=== PATIENT | male | born 1980 | race Caucasian/White ===

== ENCOUNTER 2017-04-07 18:54 | Inpatient (IN) ==
[2017-04-07] MEDS ORDERED: NS 2,000 ML IV ONE (19:56)
[2017-04-07] MEDS ORDERED: ZOFRAN IV ONE (19:56)
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
[2017-04-07 20:13] LABS: BASO% 0.3 % (0.0-0.8); EOS# 0.08 X1000 (0.0-0.7); EOS% 0.3 % (0.0-10.0); HEMATOCRIT 45.9 % (42.0-52.0); HEMOGLOBIN 16.1 g/dL (14.0-18.0); IMM GRAN# 0.12 X1000 (0.0-0.04); IMM GRAN% 0.5 % (0.0-0.5); LYMPH# 2.23 X1000 (1.2-3.4); LYMPH% 9.6 % (20.5-51.1); MANUAL DIFF NEEDED? NO; MCH 29.4 PG (27-31); MCHC 35.1 g/dL (33-37); MCV 83.8 FL (81-99); MONO# 1.82 X1000 (0.11-0.59); MONO% 7.9 % (1.7-9.3); MPV 10.7 FL (7.4-10.4); NEUT% 81.4 % (42.2-75.2); PLT 247 X1000 (130-400); RBC 5.48 XMIL (4.7-6.1)
[2017-04-07 20:25] LABS: INR 1.12; PROTIME 11.8 Seconds (9.2-11.7); PTT 26.3 Seconds (22.0-36.0)
[2017-04-07 20:29] LABS: CALCIUM 10.2 mg/dL (8.8-10.2); POTASSIUM 3.4 mmol/L (3.5-5.1); TOTAL BILIRUBIN 0.47 mg/dL (0.20-1.00); TOTAL PROTEIN 8.4 g/dL (6.3-8.3)
[2017-04-07 20:50] LABS: CK INDEX 0.7 (0.0-2.5); CK-MB 5.76 ng/mL (0.0-5.0)
--- NOTE | 2017-04-07 21:02 | Diag Imaging Result Doc PS360 ---
EXAM: HEAD W/O CONTRAST HISTORY: seizure COMPARISON: 11/12/2014. FINDINGS: No parenchymal hemorrhage. No epidural or subdural hematoma. No subarachnoid hemorrhage. No mass identified on this noncontrasted exam. No hydrocephalus. No sinus opacification. There is metal in the left scalp. IMPRESSION: No hemorrhage. Negative brain CT without contrast. Electronically signed by Bradly Bedolla 04/07/2017 8:59 PM
[2017-04-07 21:08] LABS: URINE CULTURE NEEDED? NO; URINE SOURCE CLEAN CATCH
[2017-04-07 21:15] LABS: URINE MICRO REVIEW NEEDED? YES
[2017-04-07 21:24] LABS: BILIRUBIN URINE NEGATIVE (NEGATIVE); BLOOD URINE SMALL (NEGATIVE); COLOR YELLOW; GLUCOSE URINE NEGATIVE (NEGATIVE); LEUKOCYTES URINE NEGATIVE (NEGATIVE); NITRITE URINE NEGATIVE (NEGATIVE); PH URINE 5.5; PROTEIN URINE 70 mg/dL (NEGATIVE); SP GRAVITY URINE 1.027; TURBIDITY URINE CLEAR (CLEAR); UR EPITHELIAL CELLS <10 /HPF (<10); URINE BACTERIA NEGATIVE /HPF; URINE RBC <10 /HPF (<10); URINE WBC <10 /HPF (<10); UROBILINOGEN URINE 2 mg/dL (NORMAL)
[2017-04-07 21:25] LABS: URINE CASTS NONE SEEN; URINE CRYSTALS NONE SEEN; URINE SMALL ROUND CELLS NONE SEEN
[2017-04-07 21:29] LABS: UR AMPHETAMINES QUAL NONE DETECTED (NONE DETECT); UR BARBITUATES QUAL NONE DETECTED (NONE DETECT); UR BENZODIAZEPIN QUAL NONE DETECTED (NONE DETECT); UR CANNABINOIDS QUAL NONE DETECTED (NONE DETECT); UR COCAINE QUAL NONE DETECTED (NONE DETECT); UR METHADONE QUAL NONE DETECTED (NONE DETECT); UR OPIATES QUAL NONE DETECTED (NONE DETECT); UR OXYCODONE QUAL NONE DETECTED (NONE DETECT); UR PCP QUAL NONE DETECTED (NONE DETECT)
[2017-04-07] MEDS ORDERED: ATIVAN IV PRN (23:49)
[2017-04-07] MEDS ORDERED: ZOFRAN IV PRN (23:49)
[2017-04-07] MEDS ORDERED: TYLENOL PO PRN (23:49)
[2017-04-08] MEDS: NS 1,000 ML IV SCH ×4 (00:40→17:52)
[2017-04-08] MEDS: ROCEPHIN 1 GM/NS 1 GM/50 ML IVPB IV SCH (00:40)
[2017-04-08] MEDS ORDERED: ROBITUSSIN-AC PO PRN (00:44)
[2017-04-08] MEDS ORDERED: NS 1,000 ML IV ONE (00:45)
[2017-04-08 05:21] LABS: MANUAL DIFF NEEDED? NO
[2017-04-08 05:26] LABS: BASO% 0.2 % (0.0-0.8); EOS# 0.11 X1000 (0.0-0.7); EOS% 0.8 % (0.0-10.0); HEMATOCRIT 37.9 % (42.0-52.0); HEMOGLOBIN 13.3 g/dL (14.0-18.0); IMM GRAN# 0.02 X1000 (0.0-0.04); IMM GRAN% 0.2 % (0.0-0.5); LYMPH# 2.82 X1000 (1.2-3.4); LYMPH% 21.5 % (20.5-51.1); MCH 29.8 PG (27-31); MCHC 35.1 g/dL (33-37); MONO# 1.09 X1000 (0.11-0.59); MONO% 8.3 % (1.7-9.3); MPV 10.5 FL (7.4-10.4); PLT 177 X1000 (130-400); RBC 4.46 XMIL (4.7-6.1)
[2017-04-08 05:53] LABS: AGAP 14; BUN 14 mg/dL (8-22); CHLORIDE 108 mmol/L (98-107); COSMO 279; POTASSIUM 3.6 mmol/L (3.5-5.1); SODIUM 140 mmol/L (136-145); TCO2 18 mmol/L (25-35)
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
[2017-04-08] MEDS: ZYRTEC-D 12HR PO SCH ×2 (09:28→21:34)
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
--- NOTE | 2017-04-08 12:34 | PROGRESS NOTE ---
DATE: 04/08/2017 SUBJECTIVE: Today Mr. Henry refers to be doing a little better but continues to have a very poor appetite and also some tingling sensation in the hands. OBJECTIVE: Vital signs: Blood pressure is 107/66, pulse of 75, respirations 15, temperature 97.4 degrees. General: Mr. Henry is a 36-year-old male. Full of tattoos. He was not in any distress. HEENT: Mucosa is pink and moist. Anicteric. Acyanotic. Neck: Supple. Chest: Air entry is bilaterally reduced. There is diffuse end expiratory wheezing and rhonchi. Cardiovascular: Regular rate and rhythm. Abdomen: Soft, nontender. Extremities: No pedal edema. 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 There is no focal neurological deficit. LABORATORY DATA: WBC 13.12, hemoglobin is 13.3, platelet count of 177,000. Chemistry: Sodium is 140, potassium is 3.4, chloride is 108, bicarb is 18, creatinine down to 1.4. TSH is normal. Abdomen x-ray which was done on presentation shows nonobstructive bowel pattern. Chest: Lung was clear. Normal heart size. No pneumothorax or pleural effusions. A CT scan of the head was done which shows no hemorrhage. Negative brain CT without contrast. I do not see any toxicology done. CURRENT MEDICATIONS: Patient is on ceftriaxone and guaifenesin. ASSESSMENT: 1. Rhabdomyolysis. 2. Heat exhaustion. 3. Bronchitis. 4. Active synthetic cannabis use. 5. Leukocytosis which I think is more reactive. PLAN: So in general, Mr. Henry is doing a whole lot better. He came in with rhabdomyolysis which I think is due to heat exertion. However, with a history of using synthetic marijuana, he could have also used other street recreational medications that could have potentially put him in rhabdomyolysis. The mother also refers that the patient might have had an episode of seizures which makes me think more of possibly some drug related activity. We will do a urine drug screen. Will continue with the IV hydration. We will recheck on his labs tomorrow morning and then go from there. I think by tomorrow we should be able to discharge the patient. The patient has also been advised to discontinue recreational drug use. cc: Bertin Baez MD
[2017-04-08 19:38] LABS: UR AMPHETAMINES QUAL PRESUMPTIVE POSITIVE (NONE DETECT); UR BARBITUATES QUAL NONE DETECTED (NONE DETECT); UR BENZODIAZEPIN QUAL NONE DETECTED (NONE DETECT); UR CANNABINOIDS QUAL NONE DETECTED (NONE DETECT); UR COCAINE QUAL NONE DETECTED (NONE DETECT); UR METHADONE QUAL NONE DETECTED (NONE DETECT); UR OPIATES QUAL NONE DETECTED (NONE DETECT); UR OXYCODONE QUAL NONE DETECTED (NONE DETECT); UR PCP QUAL NONE DETECTED (NONE DETECT)
[2017-04-09] MEDS: NS 1,000 ML IV SCH ×4 (00:24→10:13)
[2017-04-09] MEDS: ROCEPHIN 1 GM/NS 1 GM/50 ML IVPB IV SCH (02:26)
[2017-04-09 05:05] LABS: MANUAL DIFF NEEDED? NO
[2017-04-09 05:13] LABS: BASO% 0.4 % (0.0-0.8); EOS# 0.23 X1000 (0.0-0.7); EOS% 2.9 % (0.0-10.0); HEMATOCRIT 37.6 % (42.0-52.0); HEMOGLOBIN 12.7 g/dL (14.0-18.0); IMM GRAN# 0.02 X1000 (0.0-0.04); IMM GRAN% 0.3 % (0.0-0.5); LYMPH# 2.33 X1000 (1.2-3.4); LYMPH% 29.5 % (20.5-51.1); MCH 29.2 PG (27-31); MCHC 33.8 g/dL (33-37); MCV 86.4 FL (81-99); MONO% 10.1 % (1.7-9.3); NEUT% 56.8 % (42.2-75.2); PLT 158 X1000 (130-400); RBC 4.35 XMIL (4.7-6.1)
[2017-04-09 05:34] LABS: AGAP 13; BUN 9 mg/dL (8-22); CALCIUM 7.8 mg/dL (8.8-10.2); CHLORIDE 109 mmol/L (98-107); COSMO 278; POTASSIUM 4.2 mmol/L (3.5-5.1); SODIUM 141 mmol/L (136-145); TCO2 19 mmol/L (25-35)
[2017-04-09 07:38] VITALS: BP 106/68
--- NOTE | 2017-04-09 10:10 | DISCHARGE SUMMARY ---
ADMISSION DATE: 04/07/2017 DISCHARGE DATE: 04/09/2017 SUBJECTIVE: This is a 36-year-old, who presented with nausea and vomiting. 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 The temperature got to about 103 and he was admitted with acute renal injury, rhabdomyolysis, leukocytosis, nausea and vomiting, heat exhaustion. Patient it does use synthetic marijuana. I saw no evidence of a bacterial infection. He was put on Rocephin empirically when he came in. LABS: On admission, hematocrit 45, white count 23,000. Followup on 04/09/2017 or today, white count 7910, hematocrit 37, platelet count 158,000. Chemistries: Potassium 3.4 Hid creatinine was 1.8 and is down to 0.8. CPK was 780 down to 452. ASSESSMENT AND PLAN: [place] he could go home on 04/09/2017. Discouraged him from using synthetic marijuana or any other substance. Make sure he hydrates. DISCHARGE MEDICATIONS: His home medications were none. PRIMARY CARE PHYSICIAN: He has no primary care physician, so did not discharge on any medications. cc: Isaiah Wesley MD
[2017-04-09] MEDS: ZYRTEC-D 12HR PO SCH (10:11)
== END 2017-04-09 11:36 | disposition home or self-care (01) ==
LOC: ED 18:54 → SUATTDRO 23:29 → 4N 23:29
PROVIDERS: ATTEND Emergency Medicine

== ENCOUNTER 2020-01-27 10:56 | Day surgery (SDC) ==
[2020-01-27] MEDS ORDERED: VANCOMYCIN 1 GM/NS 1 GM/250 ML IVPB IV ONE (11:21)
[2020-01-27] MEDS ORDERED: ROCEPHIN 1 GM in NS 50 ML IV ONE (11:22)
[2020-01-27 11:57] LABS: BASO# 0.04 X1000 (0.0-0.2); BASO% 0.3 % (0.0-0.8); EOS# 0.08 X1000 (0.0-0.7); EOS% 0.6 % (0.0-10.0); HEMATOCRIT 40.8 % (42.0-52.0); HEMOGLOBIN 13.2 g/dL (14.0-18.0); IMM GRAN# 0.03 X1000 (0.0-0.04); IMM GRAN% 0.2 % (0.0-0.5); LYMPH# 1.89 X1000 (1.2-3.4); LYMPH% 14.9 % (20.5-51.1); MCH 27.8 PG (27-31); MCHC 32.4 g/dL (33-37); MCV 86.1 FL (81-99); MONO# 1.39 X1000 (0.11-0.59); MPV 10.6 FL (7.4-10.4); NEUT# 9.26 X1000 (1.4-6.5); PLT 188 X1000 (130-400); RBC 4.74 XMIL (4.7-6.1); RDW 13.7 % (11.5-14.5); WBC 12.69 X1000 (4.8-10.8)
[2020-01-27 12:16] LABS: INR 1.15; PROTIME 14.9 Seconds (11.0-16.0); PTT 29.2 Seconds (22.3-41.8)
[2020-01-27 12:44] LABS: AGAP 12; ALB/GLOB RATIO 1.2; ALBUMIN 4.3 g/dL (3.5-5.0); ALKALINE PHOSPHATASE 66 U/L (32-122); BUN 12 mg/dL (8-22); CALCIUM 9.3 mg/dL (8.8-10.2); CHLORIDE 102 mmol/L (98-107); COSMO 277; CREATININE 0.9 mg/dL (0.7-1.2); ESTIMATED GFR > 60; GLUCOSE 97 mg/dL (70-104); GOT 13 U/L (10-34); GPT 12 U/L (10-44); POTASSIUM 3.6 mmol/L (3.5-5.1); SODIUM 139 mmol/L (136-145); TCO2 25 mmol/L (25-35); TOTAL BILIRUBIN 0.53 mg/dL (0.20-1.00); TOTAL PROTEIN 7.9 g/dL (6.3-8.3)
[2020-01-27] MEDS ORDERED: DIPRIVAN 1% ONE (14:12)
[2020-01-27] MEDS ORDERED: XYLOCAINE-MPF 2% ONE (14:13)
[2020-01-27] MEDS ORDERED: QUELICIN (DOSE) ONE (14:13)
[2020-01-27] MEDS ORDERED: ROBINUL ONE (14:13)
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
[2020-01-27] MEDS ORDERED: ZOFRAN ONE (14:47)
[2020-01-27] MEDS ORDERED: TORADOL ONE (14:47)
[2020-01-27] MEDS ORDERED: DILAUDID ONE (14:52)
[2020-01-27] MEDS ORDERED: NS 1,000 ML ONE (15:19)
[2020-01-27] MEDS ORDERED: NORCO-10 ONE (15:30)
[2020-01-27] MEDS ORDERED: DILAUDID IV PRN (15:43)
[2020-01-27] MEDS: ZOSYN 3.375 GM in NS 50 ML IV SCH ×2 (16:57→22:52)
[2020-01-27] MEDS: NORCO-10 PO PRN ×2 (17:41→22:52)
--- NOTE | 2020-01-27 18:23 | OPERATIVE NOTE ---
PROCEDURE DATE: 01/27/2020 PROCEDURE: Incision and drainage right gluteal abscess. SURGEON: Akbar Kurtz MD. USER INTERFACE ENGINEER: JUSTIN Edwards. PREOPERATIVE DIAGNOSIS: Right gluteal abscess. POSTOP DIAGNOSIS: Right gluteal abscess. DESCRIPTION OF PROCEDURE: Satisfactory general anesthesia was achieved. The patient placed in candy-cane stirrups. The right gluteal area is prepped and draped in a sterile fashion. We made a radial incision into the abscess. Foul smelling pus came forth. Cultures were taken. After we opened the area completely we digitally explored the wound and no loculations were present. It was quite indurated around the wound. We then copiously irrigated out and then packed it with Betadine-impregnated gauze followed by sterile 4 x 4s, ABD. He tolerated it well, sent to the recovery room in satisfactory condition. cc: Akbar Kurtz MD
[2020-01-27] MEDS: PERIDEX MT SCH (21:50)
[2020-01-27] MEDS: NS 1,000 ML IV SCH (21:51)
[2020-01-28] MEDS: VANCOMYCIN 1 GM/NS 1 GM/250 ML IVPB IV SCH ×2 (00:55→13:17)
[2020-01-28] MEDS: NORCO-10 PO PRN ×4 (04:18→21:42)
[2020-01-28] MEDS: ZOSYN 3.375 GM in NS 50 ML IV SCH ×4 (04:18→23:30)
[2020-01-28] MEDS: NS 1,000 ML IV SCH ×2 (04:22→20:38)
--- NOTE | 2020-01-28 08:21 | GENERAL SURGERY PROGRESS NOTE ---
DATE: 01/28/2020 Mr. Henry is afebrile. Today, we removed the packing. His culture reports are pending. Will continue with his antibiotic therapy for now. cc: Akbar Kurtz MD
[2020-01-28] MEDS: PERIDEX MT SCH ×2 (10:55→21:43)
[2020-01-29] MEDS: VANCOMYCIN 1 GM/NS 1 GM/250 ML IVPB IV SCH (01:31)
[2020-01-29] MEDS: NORCO-10 PO PRN (06:25)
[2020-01-29] MEDS: ZOSYN 3.375 GM in NS 50 ML IV SCH (06:25)
[2020-01-29] MEDS: NS 1,000 ML IV SCH (06:25)
--- NOTE | 2020-01-29 07:42 | GENERAL SURGERY PROGRESS NOTE ---
DATE: 01/29/2020 SUBJECTIVE/OBJECTIVE: Mr. Henry' wound is much better. It is less indurated. He is afebrile. Heart rate 74, blood pressure 110/76. He feels much better. PLAN: The plan is discharge today. We will send him home on Augmentin, and he will return to see me in the office in 1 week, and he can return to work tomorrow. cc: Akbar Kurtz MD
[2020-01-29 07:44] VITALS: BP 116/75
[2020-01-29] MEDS: PERIDEX MT SCH (08:19)
== END 2020-01-29 09:19 | disposition home or self-care (01) ==
LOC: ED 10:56 → 4N 10:56 → OPS 14:34
PROVIDERS: ATTEND Surgery